=== PATIENT | female | born 1960 | race Caucasian/White ===

== ENCOUNTER 2017-06-12 09:20 | Emergency (ER) | payer BC, MEDICARE ==
[~2017-06-12] VITALS: Ht 154.9 cm; Wt 51.0 kg
[2017-06-12 09:22] VITALS: BP 116/82; PULSE 84; RESP 20; TEMP 98.1; O2SAT 96
--- NOTE | 2017-06-12 10:00 | RADRPT ---
EXAM DATE/TIME: 06/12/2017 09:42 [place] COMPARISON: No previous studies available for comparison. INDICATIONS : Short of breath and cold symptoms. MEDICAL HISTORY : None. SURGICAL HISTORY : None. ENCOUNTER: Initial ACUITY: 3 weeks PAIN SCORE: 0/10 LOCATION: Bilateral chest FINDINGS: PA and lateral views of the chest demonstrate the lungs to be symmetrically aerated without evidence of mass, infiltrate or effusion. The cardiomediastinal contours are unremarkable. Osseous structure s are intact. CONCLUSION: No acute disease. Martinez Greene Jr., MD on June 12, 2017 at 9:58 Board Certified Radiologist. This report was verified electronically.
[2017-06-12] MEDS ORDERED: DILA100C PO ×2 (10:56→12:42)
[2017-06-12] MEDS ORDERED: methylPREDNISolone SOD SUCC 125 MG/2 ML VIAL IV PUSH ONE (11:00)
[2017-06-12] MEDS ORDERED: SODIUM CHLORID 0.9% 500 ML INJ 500 ML IV ONE (11:00)
[2017-06-12] MEDS ORDERED: SODIUM CHLORIDE 0.9% FLUSH 10 ML FLUSH IVF PRN (11:00)
[2017-06-12 11:02] LABS: AUTOMATED NEUTROPHIL # 4.6 TH/MM3 (1.8-7.7); BASOPHIL # 0.1 TH/MM3 (0-0.2); BASOPHIL % 0.9 % (0.0-2.0); BILIRUBIN, URINE NEG (NEG); BLOOD, URINE NEG (NEG); EOSINOPHIL # 1.2 TH/MM3 (0-0.4); EOSINOPHIL % 16.2 % (0.0-4.0); GLUCOSE,URINE NEG (NEG); HEMATOCRIT 37.4 % (35.0-46.0); HEMOGLOBIN 13.1 GM/DL (11.6-15.3); KETONE, URINE NEG (NEG); LYMPH % 15.3 % (9.0-44.0); LYMPHOCYTE # 1.2 TH/MM3 (1.0-4.8); MEAN CELL VOLUME 94.6 FL (80.0-100.0); MEAN CORPUSCULAR HEMOGLOBIN 33.1 PG (27.0-34.0); MEAN PLATELET VOLUME 7.7 FL (7.0-11.0); MONO % 6.2 % (0.0-8.0); MONOCYTE # 0.5 TH/MM3 (0-0.9); MUCUS URINE FEW /lpf (OCC); NEUT % 61.4 % (16.0-70.0); NITRITE,URINE NEG (NEG); PLATELET COUNT 237 TH/MM3 (150-450); RED BLOOD COUNT 3.95 MIL/MM3 (4.00-5.30); RED CELL DISTRIBUTION WIDTH 12.2 % (11.6-17.2); SQUAMOUS EPITHELIAL CELL URINE 2 /hpf (0-5); URINE COLOR YELLOW (YELLW/STRAW); URINE LEUKOCYTE ESTERASE SMALL (NEG); WHITE BLOOD COUNT 7.5 TH/MM3 (4.0-11.0)
--- NOTE | 2017-06-12 11:04 | PD ---
HPI Chief Complaint: Cold / Flu Symptoms Time Seen by Provider: 10:50 Travel History International Travel<30 days: No Contact w/Intl Traveler<30days: No Traveled to known affect area: No History of Present Illness HPI The patient is a 56-year-old female who presents to the emergency department for cough and wheezing of 3 weeks duration. The patient recently moved from [place], [place], to the local area. The patient states 3 weeks ago she developed a productive cough producing green sputum. She took 4 days of Augmentin, that her daughter apparently had left over from a prior infection, and had some improvement of her symptoms. However, her symptoms have returned. She does complain of a productive cough, wheezing, and mild shortness of breath. She denies any chest pain, nausea, vomiting, diarrhea, or abdominal pain. She does have a history of tobacco use, denies any formal diagnosis COPD. She denies any previous diagnosis is CHF, pulmonary embolism, or DVT. Symptoms are moderate. The patient does not have a local primary physician. She is also requesting a refill of her Dilantin 300 mg at night, has been out of her Dilantin for 30 days. [facility] Past Medical History Cerebrovascular Accident: Yes (CVA AUGUST 2016) Diabetes: Yes ?: Not Past Surgical History Hysterectomy: Yes (with oopharectomy ) Other Surgery: Yes (lithotripsy) Social History Alcohol Use: No Tobacco Use: Yes Substance Use: No Allergies-Medications (Allergen,Severity, Reaction): Coded Allergies: carbamazepine (Verified Allergy, Unknown, 06/12/17) Reported Meds & Prescriptions Reported Meds & Active Scripts Active Reported Dilantin (Phenytoin Extended) 100 Mg Cap 300 Mg PO DAILY Review of Systems Except as stated in HPI: all other systems reviewed are Neg General / Constitutional: No: Fever Eyes: No: Blurred Vision HENT: No: Headaches Cardiovascular: No: Chest Pain or Discomfort Respiratory: Positive: Cough, Shortness of Breath, Wheezing Gastrointestinal: No: Nausea, Vomiting, Abdominal Pain Musculoskeletal: No: Edema Neurologic: No: Dizziness Physical Exam Narrative GENERAL: Awake, alert, pleasant 56-year-old female who appears her stated age and is in no acute respiratory distress. SKIN: Focused skin assessment warm/dry. HEAD: Atraumatic. Normocephalic. EYES: Pupils equal and round. No scleral icterus. No injection or drainage. ENT: No nasal bleeding or discharge. Mucous membranes pink and moist. NECK: Trachea midline. No JVD. CARDIOVASCULAR: Regular rate and rhythm. No murmur appreciated. RESPIRATORY: No accessory muscle use. Prolonged expiratory phase with diffuse wheezing. GASTROINTESTINAL: Abdomen soft, non-tender, nondistended. No rebound tenderness. MUSCULOSKELETAL: No obvious deformities. No clubbing. No cyanosis. No edema. NEUROLOGICAL: Awake and alert. No obvious cranial nerve deficits. Motor grossly within normal limits. Normal speech. PSYCHIATRIC: Appropriate mood and affect; insight and judgment normal. Data Data Last Documented VS Vital Signs Date Time Temp Pulse Resp B/P (MAP) Pulse Ox O2 Delivery O2 Flow Rate FiO2 06/12/17 11:31 96 21 06/12/17 10:54 Room Air 06/12/17 09:22 98.1 84 20 116/82 (93) Orders Orders Electrocardiogram (06/12/17 09:27) Complete Blood Count With Diff (06/12/17 09:27) Basic Metabolic Panel (Bmp) (06/12/17 09:27) Ckmb (Isoenzyme) Profile (06/12/17 09:27) Troponin I (06/12/17 09:27) Chest, Pa & Lat (06/12/17 ) Urinalysis - C+S If Indicated (06/12/17 09:31) B-Type Natriuretic Peptide (06/12/17 10:57) Iv Access Insert/Monitor (06/12/17 10:57) Ecg Monitoring (06/12/17 10:57) Oximetry (06/12/17 10:57) Oxygen Administration (06/12/17 10:57) Sodium Chloride 0.9% Flush (Ns Flush) (06/12/17 11:00) Methylprednisolone So Succ Inj (Solumedr (06/12/17 11:00) Albuterol-Ipratropium Neb (Duoneb Neb) (06/12/17 11:00) Sodium Chlorid 0.9% 500 Ml Inj (Ns 500 M (06/12/17 11:00) Labs Laboratory Tests Test 06/12/17 09:57 06/12/17 11:05 White Blood Count 7.5 TH/MM3 Red Blood Count 3.95 MIL/MM3 Hemoglobin 13.1 GM/DL Hematocrit 37.4 % Mean Corpuscular Volume 94.6 FL Mean Corpuscular Hemoglobin 33.1 PG Mean Corpuscular Hemoglobin Concent 35.0 % Red Cell Distribution Width 12.2 % Platelet Count 237 TH/MM3 Mean Platelet Volume 7.7 FL Neutrophils (%) (Auto) 61.4 % Lymphocytes (%) (Auto) 15.3 % Monocytes (%) (Auto) 6.2 % Eosinophils (%) (Auto) 16.2 % Basophils (%) (Auto) 0.9 % Neutrophils # (Auto) 4.6 TH/MM3 Lymphocytes # (Auto) 1.2 TH/MM3 Monocytes # (Auto) 0.5 TH/MM3 Eosinophils # (Auto) 1.2 TH/MM3 Basophils # (Auto) 0.1 TH/MM3 CBC Comment DIFF FINAL Differential Comment Urine Color YELLOW Urine Turbidity CLEAR Urine pH 6.0 Urine Specific [place] 1.018 Urine Protein NEG mg/dL Urine Glucose (UA) NEG mg/dL Urine Ketones NEG mg/dL Urine Occult Blood NEG Urine Nitrite NEG Urine Bilirubin NEG Urine Urobilinogen LESS THAN 2.0 MG/DL Urine Leukocyte Esterase SMALL Urine RBC 5 /hpf Urine WBC 3 /hpf Urine Squamous Epithelial Cells 2 /hpf Urine Mucus FEW /lpf Microscopic Urinalysis Comment CULT NOT INDICATED Blood Urea Nitrogen 14 MG/DL Creatinine 0.90 MG/DL Random Glucose 103 MG/DL Calcium Level 8.5 MG/DL Sodium Level 139 MEQ/L Potassium Level 3.8 MEQ/L Chloride Level 107 MEQ/L Carbon Dioxide Level 25.4 MEQ/L Anion Gap 7 MEQ/L Estimat Glomerular Filtration Rate 65 ML/MIN Total Creatine Kinase 57 U/L Troponin I LESS THAN 0.02 NG/ML B-Type Natriuretic Peptide 10 PG/ML MDM Medical Decision Making Medical Screen Exam Complete: Yes Emergency Medical Condition: Yes Medical Record Reviewed: Yes Interpretation(s) EKG reveals normal sinus rhythm with a rate of 71. No ischemic changes or ectopy noted. Laboratory Tests Test 06/12/17 09:57 06/12/17 11:05 White Blood Count 7.5 TH/MM3 Red Blood Count 3.95 MIL/MM3 Hemoglobin 13.1 GM/DL Hematocrit 37.4 % Mean Corpuscular Volume 94.6 FL Mean Corpuscular Hemoglobin 33.1 PG Mean Corpuscular Hemoglobin Concent 35.0 % Red Cell Distribution Width 12.2 % Platelet Count 237 TH/MM3 Mean Platelet Volume 7.7 FL Neutrophils (%) (Auto) 61.4 % Lymphocytes (%) (Auto) 15.3 % Monocytes (%) (Auto) 6.2 % Eosinophils (%) (Auto) 16.2 % Basophils (%) (Auto) 0.9 % Neutrophils # (Auto) 4.6 TH/MM3 Lymphocytes # (Auto) 1.2 TH/MM3 Monocytes # (Auto) 0.5 TH/MM3 Eosinophils # (Auto) 1.2 TH/MM3 Basophils # (Auto) 0.1 TH/MM3 CBC Comment DIFF FINAL Differential Comment Urine Color YELLOW Urine Turbidity CLEAR Urine pH 6.0 Urine Specific [place] 1.018 Urine Protein NEG mg/dL Urine Glucose (UA) NEG mg/dL Urine Ketones NEG mg/dL Urine Occult Blood NEG Urine Nitrite NEG Urine Bilirubin NEG Urine Urobilinogen LESS THAN 2.0 MG/DL Urine Leukocyte Esterase SMALL Urine RBC 5 /hpf Urine WBC 3 /hpf Urine Squamous Epithelial Cells 2 /hpf Urine Mucus FEW /lpf Microscopic Urinalysis Comment CULT NOT INDICATED Blood Urea Nitrogen 14 MG/DL Creatinine 0.90 MG/DL Random Glucose 103 MG/DL Calcium Level 8.5 MG/DL Sodium Level 139 MEQ/L Potassium Level 3.8 MEQ/L Chloride Level 107 MEQ/L Carbon Dioxide Level 25.4 MEQ/L Anion Gap 7 MEQ/L Estimat Glomerular Filtration Rate 65 ML/MIN Total Creatine Kinase 57 U/L Troponin I LESS THAN 0.02 NG/ML B-Type Natriuretic Peptide 10 PG/ML Last Impressions Chest X-Ray 06/12/17 0000 Signed Impressions: Service Date/Time: Monday, June 12, 2017 09:42 - CONCLUSION: No acute disease. Martinez Greene Jr., MD Differential Diagnosis Differential diagnosis includes bronchitis, pneumonia, influenza, COPD, pleural effusion, STEMI, ACS, pulmonary edema, congestive heart failure. Narrative Course IV was established, labs are drawn and sent, and the patient was placed on cardiac telemetry monitoring and continuous pulse oximetry monitoring. EKG was ordered and interpreted. Chest x-ray was obtained. The patient was administered Solu-Medrol 125 mg intravenously and duo nebs. BNP was sent to lab. EKG is unremarkable. Chest x-ray was negative. Troponin is negative. BNP was 10. The patient was reevaluated at 12:36 PM. The patient symptoms have significantly improved. She is advised to stop smoking and follow-up with a primary physician. She will be provided a copy of her labs and x-ray results at discharge. Diagnosis Primary Impression: Bronchitis Additional Impression: Medication refill Patient Instructions: General Instructions Additional Instructions: Please provide the patient a copy of her x-ray results and lab results at discharge. Follow-up with your primary physician. Return if symptoms worsen or progress. Stop smoking. Med/Other Pt SpecificInfo: Prescription(s) given Scripts Promethazine-Codeine Liq (Promethazine-Codeine Liq) 6.25-10 Mg/5 Ml Syrp 10 ML PO Q6H Y for COUGH AND/OR COLD SYMPTOMS, #120 ML 0 Refills Prov: Wyatt Cardoza MD 06/12/17 Albuterol 8.5 GM Inh (Proair Hfa 8.5 GM Inh) 90 Mcg/Act Aer 2 PUFF INH Q4-6H Y for SHORTNESS OF BREATH, #1 INHALER 0 Refills 108 mcg/actuation Prov: Wyatt Cardoza MD 06/12/17 Prednisone (Prednisone) 20 Mg Tab 40 MG PO DAILY for 4 Days, #8 TAB 0 Refills Take 40 mg (2 tablets) daily for 5 days Prov: Wyatt Cardoza MD 06/12/17 Azithromycin (Zithromax Z-Kumar) 250 Mg Dspk 250 MG PO DIRECTED for Infection, #1 DSPK 0 Refills 500 MG (2 tabs) day 1, then 1 tab days 2-5. Prov: Wyatt Cardoza MD 06/12/17 Phenytoin Extended (Dilantin) 100 Mg Cap 300 MG PO HS for Control Seizures for 30 Days, #90 CAP 0 Refills Prov: Wyatt Cardoza MD 06/12/17 Disposition: 01 DISCHARGE HOME Condition: Stable Wyatt Cardoza MD Jun 12, 2017 11:04
[2017-06-12 11:16] LABS: BICARBONATE 25.4 MEQ/L (21.0-32.0); BLOOD UREA NITROGEN 14 MG/DL (7-18); CALCIUM 8.5 MG/DL (8.5-10.1); CHLORIDE 107 MEQ/L (98-107); GLOMERULAR FILTRATION RATE 65 ML/MIN (>89); GLUCOSE,RANDOM 103 MG/DL (74-106); SODIUM (NA) 139 MEQ/L (136-145)
[2017-06-12 11:20] LABS: TROPONIN I LESS THAN 0.02 NG/ML (0.02-0.05)
[2017-06-12] MEDS: RESP: ALBUTEROL 2.5 MG/IPRATROPIUM 0.5 MG NEB (SCH) INH ×2 (11:27→11:28)
[2017-06-12 11:31] VITALS: O2SAT 96
[2017-06-12] MEDS ORDERED: ALBUAER3 INH (12:42)
[2017-06-12] MEDS ORDERED: ZITHTAB PO (12:42)
[2017-06-12] MEDS ORDERED: PRED20 PO (12:42)
[2017-06-12] MEDS ORDERED: PROM6.256 PO (12:42)
--- NOTE | 2017-06-13 23:21 | EKG ---
Date Performed: 06/12/2017 Time Performed: 09:51:20 PTAGE: 56 years EKG: Sinus rhythm NORMAL ECG NO PREVIOUS TRACING DOCTOR: Ming Valverde Interpretating Date/Time 06/13/2017 23:20:21
== END 2017-06-12 13:06 | disposition home or self-care (01) ==
LOC: NEPD 09:20
DX: J40 Bronchitis, not specified as acute or chronic (principal); R06.02 Shortness of breath; Z72.0 Tobacco use
CPT/HCPCS: 71046; 80048; 81001; 82550; 83880; 84484; 85025; 93005; 94664; 96374; 99285; J2930; J7040